=== PATIENT | male | born 1975 | race Caucasian/White ===

== ENCOUNTER 2018-06-24 05:22 | Observation (INO) | payer OTHER ==
[2018-06-24 05:59] LABS: Basophils % (A) 0 %; Eosinophils # (A) 0.1 k/uL (0-0.7); Eosinophils % (A) 1 %; HCT 46.7 % (39.0-53.0); Lymphocytes # (A) 2.2 k/uL (1.0-4.8); Lymphocytes % (A) 25 %; MCH 28.2 pg (25.0-35.0); MCHC 32.1 g/dL (31.0-37.0); Mean Platelet Volume 7.4; Monocytes # (A) 0.6 k/uL (0-1.0); Monocytes % (A) 7 %; Neutrophils # (A) 5.4 k/uL (1.3-7.7); Neutrophils % (A) 64 %; Platelet Count 249 k/uL (150-450); RBC 5.31 m/uL (4.30-5.90); RDW 12.5 % (11.5-15.5); WBC 8.6 k/uL (3.8-10.6)
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
[2018-06-24 06:11] LABS: ALT 29 U/L (21-72); AST 15 U/L (17-59); Albumin 3.7 g/dL (3.5-5.0); Alcohol <10 mg/dL; Alkaline Phosphatase 76 U/L (38-126); Anion Gap 11 mmol/L; Blood Urea Nitrogen 18 mg/dL (9-20); Calcium 8.9 mg/dL (8.4-10.2); Carbon Dioxide 19 mmol/L (22-30); Chloride 108 mmol/L (98-107); Glucose 407 mg/dL (74-99); Potassium 4.3 mmol/L (3.5-5.1); Sodium 138 mmol/L (137-145); Total Bilirubin 0.5 mg/dL (0.2-1.3); Total Protein 6.4 g/dL (6.3-8.2)
[2018-06-24 06:14] LABS: INR 0.9 (<1.2); Partial Thromboplastin Time 22.2 sec (22.0-30.0); Prothrombin Time 9.9 sec (9.0-12.0)
[2018-06-24 06:21] LABS: Creatine Kinase 38 U/L (55-170)
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
[2018-06-24 06:34] LABS: Creatine Kinase MB 0.3 ng/mL (0.0-2.4); Troponin I <0.012 ng/mL (0.000-0.034)
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
[2018-06-24] MEDS ORDERED: SODIUM CHLORIDE 0.9% 2,000 ML IV ONE (06:48)
[2018-06-24] MEDS ORDERED: KETOROLAC 30 MG/ML 1 ML VIAL IVP STA (07:05)
[2018-06-24] MEDS ORDERED: NALOXONE 0.4 MG/ML 1 ML VIAL IV PRN ×2 (07:11→11:48)
[2018-06-24] MEDS ORDERED: ONDANSETRON 4 MG/2 ML VIAL IVP PRN (07:11)
[2018-06-24] MEDS: INSULIN ASPART 100 UNIT/ML 1 ML 10 ML VIAL SQ SCH ×4 (08:27→20:41)
[2018-06-24 08:59] LABS: Appearance,Urine Clear (Clear); Bilirubin,Urine Negative (Negative); Blood,Urine Negative (Negative); Color,Urine Light Yellow; Glucose,Urine (UA) 4+ (Negative); Leukocyte Esterase,Urine Negative (Negative); Nitrite,Urine Negative (Negative); Protein,Urine Negative (Negative); Urobilinogen,Urine <2.0 mg/dL (<2.0)
[2018-06-24 09:13] LABS: Ketones,Urine 2+ (Negative)
[2018-06-24 09:24] LABS: Glucose,Whole Blood 248 mg/dL (75-99)
[2018-06-24 09:27] LABS: Amphetamine Screen,Urine Not Detected (NotDetected); Barbiturate Screen,Urine Not Detected (NotDetected); Benzodiazepines Screen,Urine Not Detected (NotDetected); Cocaine Screen,Urine Not Detected (NotDetected); Methadone Screen, Urine Not Detected (NotDetected); Opiate Screen,Urine Not Detected (NotDetected); Oxycodone Screen, Urine Not Detected (NotDetected); Phencyclidine Screen,Urine Not Detected (NotDetected); Tricyclic Antidepressant,Urine Not Detected (NotDetected); Urn Cannabinoid Scrn Detected (NotDetected)
[2018-06-24 09:54] VITALS: BMI 33.7
[2018-06-24] MEDS: FAMOTIDINE 20 MG TAB PO SCH ×2 (10:05→20:41)
[2018-06-24] MEDS: ACETAMINOPHEN TAB 325 MG TAB PO PRN ×2 (10:05→17:07)
[2018-06-24] MEDS: SODIUM CHLORIDE 0.9% 1,000 ML IV SCH ×2 (10:08→17:12)
[2018-06-24] MEDS ORDERED: HYDROcodone/APAP 5-325MG 1 EACH TAB PO PRN (11:50)
[2018-06-24 11:53] LABS: Glucose,Whole Blood 233 mg/dL (75-99)
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
[2018-06-24] MEDS: KETOROLAC 30 MG/ML 1 ML VIAL IVP PRN ×2 (12:39→20:40)
[2018-06-24 17:02] LABS: Glucose,Whole Blood 232 mg/dL (75-99)
[2018-06-24] MEDS: CYCLOBENZAPRINE 5 MG TAB PO PRN (18:18)
[2018-06-24 20:05] LABS: Glucose,Whole Blood 293 mg/dL (75-99)
[2018-06-24 22:34] LABS: Hemoglobin A1C 12.3 % (4.0-6.0)
[2018-06-25] MEDS: SODIUM CHLORIDE 0.9% 1,000 ML IV SCH ×2 (00:37→07:40)
[2018-06-25 07:18] LABS: Glucose,Whole Blood 187 mg/dL (75-99)
[2018-06-25] MEDS: INSULIN ASPART 100 UNIT/ML 1 ML 10 ML VIAL SQ SCH ×2 (07:40→12:41)
[2018-06-25] MEDS: FAMOTIDINE 20 MG TAB PO SCH (07:40)
[2018-06-25] MEDS: ACETAMINOPHEN TAB 325 MG TAB PO PRN (07:43)
[2018-06-25 08:19] VITALS: RESP 16
[2018-06-25 09:08] LABS: Anion Gap 6 mmol/L; Blood Urea Nitrogen 11 mg/dL (9-20); Calcium 8.2 mg/dL (8.4-10.2); Carbon Dioxide 25 mmol/L (22-30); Chloride 109 mmol/L (98-107); Glucose 235 mg/dL (74-99); Potassium 4.5 mmol/L (3.5-5.1); Sodium 140 mmol/L (137-145)
[2018-06-25] MEDS ORDERED: metFORMIN 500 MG TAB PO SCH (09:15)
[2018-06-25 12:12] LABS: Glucose,Whole Blood 140 mg/dL (75-99)
[2018-06-25] MEDS: CYCLOBENZAPRINE 5 MG TAB PO PRN (12:26)
[2018-06-25 14:55] VITALS: BP 123/76; PULSE 80; TEMP 97.9
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
== END 2018-06-25 15:40 | disposition home or self-care (01) ==
LOC: EC 05:22 → 4SSUR 07:16
PROVIDERS: ADMIT Family Medicine; ATTEND Family Medicine
DX: S39.012A Strain of muscle, fascia and tendon of lower back, initial encounter (principal); E11.65 Type 2 diabetes mellitus with hyperglycemia; E87.2 Acidosis; M51.26 Other intervertebral disc displacement, lumbar region; K42.9 Umbilical hernia without obstruction or gangrene; G89.29 Other chronic pain; E66.9 Obesity, unspecified; Z68.33 Body mass index [BMI] 33.0-33.9, adult; Z86.59 Personal history of other mental and behavioral disorders; Z87.891 Personal history of nicotine dependence; Z80.3 Family history of malignant neoplasm of breast; Z83.3 Family history of diabetes mellitus; Z82.0 Family history of epilepsy and other diseases of the nervous system; V89.2XXA Person injured in unspecified motor-vehicle accident, traffic, initial encounter; Y92.410 Unspecified street and highway as the place of occurrence of the external cause
CPT/HCPCS: 96376; 96361 ×2; 96374; 99285; 36415; 94760; 93005; 86900; 86901; 80053; 80048; 82550; 82553; 82009; 83605; 84484; 85025; 85610; 85730; 86850; 81003; 80306; 80320; 83036; 72170; 71045; 72128; 72131; 71260; 74177; G0378 ×2; J1885; Q9967